=== PATIENT | female | born 1990 | race American Indian/Alaskan Native ===

== ENCOUNTER 2016-03-19 13:36 | Inpatient (IN) | payer OTHER ==
[2016-03-19] MEDS ORDERED: SUBLIMAZE IV PRN (14:05)
[2016-03-19] MEDS ORDERED: MINERAL OIL PO PRN (14:05)
[2016-03-19] MEDS ORDERED: BRETHINE IVP PRN (14:05)
[2016-03-19] MEDS ORDERED: ePHEDrine SULFATE IV PRN ×2 (14:05→18:42)
[2016-03-19] MEDS ORDERED: POLYCILLIN/NS 2 GM/100 ML 100 ML IV ONE (14:05)
[2016-03-19] MEDS ORDERED: STADOL IV PRN (14:05)
[2016-03-19] MEDS ORDERED: BRETHINE SUB-Q PRN (14:05)
[2016-03-19] MEDS ORDERED: PITOCin/NS 20 UNIT/1000ML DRIP 1,000 ML IV SCH (15:00)
[2016-03-19] MEDS ORDERED: PITOCin/NS 30 UNIT/500ML 500 ML IV SCH ×2 (15:00)
[2016-03-19 15:01] LABS: Hematocrit 32.6 % (30.3-42.9); Hemoglobin 10.7 gm/dl (10.1-14.3); Mean Corpuscular HGB Conc 33 % (30-34); Mean Corpuscular Volume 75 fl (79-97); Red Blood Count 4.38 M/mm3 (3.65-5.03); White Blood Count 8.5 K/mm3 (4.5-11.0)
[2016-03-19 15:09] LABS: Mean Corpuscular Hemoglobin 24 pg (28-32); Platelet Count 179 K/mm3 (140-440)
[2016-03-19] MEDS: LACTATED RINGERS 1,000 ML IV SCH ×2 (17:18→20:04)
[2016-03-19] MEDS ORDERED: POLYCILLIN/NS 1 GM/50 ML 50 ML IV SCH (18:07)
[2016-03-19] MEDS ORDERED: ePHEDrine SULFATE ONE ×2 (18:24)
[2016-03-19] MEDS ORDERED: NARCAN 2 MG/2 ML IV PRN (18:42)
--- NOTE | 2016-03-19 18:42 | Anesthesia Consultation ---
Anesthesia Consult and Med Hx Date of service: 03/19/16 - Airway ROM Head & Neck: Adequate Mental/Hyoid Distance: Adequate Mallampati Class: Class II Intubation Access Assessment: Probably Good - Pulmonary Exam CTA: Yes - Cardiac Exam Cardiac Exam: RRR - Pre-Operative Health Status ASA Pre-Surgery Classification: ASA2 Proposed Anesthetic Plan: Epidural - Pulmonary Hx Asthma: No COPD: No Hx Pneumonia: No - Cardiovascular System Hx Hypertension: No - Central Nervous System Hx Seizures: No Hx Psychiatric Problems: No - Endocrine Hx Renal Disease: No Hx End Stage Renal Disease: No Hx Hypothyroidism: No Hx Hyperthyroidism: No - Hematic Hx Anemia: No Hx Sickle Cell Disease: No - Other Systems Hx Alcohol Use: No
[2016-03-19] MEDS ORDERED: fentaNYL-BUPIV 2 MCG/ML-0.125% 100 ML EPIDURAL SCH (19:00)
--- NOTE | 2016-03-19 21:45 | History and Physical Report ---
History of Present Illness Date of examination: 03/19/16 Date of admission: 03/19/16 13:36 Chief complaint: This is a 25 yo at 35+6 weeks came into L and D c/o leaking clear fluid at 1140 am and noted to be 3/70/-3 and liliana. OB problems consist of sickle cell trait. She has gained over 30 pounds in this . Labs include : B+ antibody neg H/H 12.8/38--- 10.3/31.5 Normal pap Rubella IMM RPR NR Hep neg HIV neg PLT 365 HSV2 neg chlam neg jaclyn neg quad neg US VENUS 04/17/16 Glucose 110 HIV neg Previous 5 pounds and 9 oz vag GBS+ Past History Past Medical History: no pertinent history Past Surgical History: no surgical history Family/Genetic History: other (cancer breast) Social history: , smoking (former marijuana ), alcohol abuse (former) - Obstetrical History Expected Date of Delivery: 04/17/16 Actual Gestation: 35 Week(s) 6 Day(s) : 2 Para: 1 Hx # Term Pregnancies: 1 Number of Pregnancies: 0 Spontaneous Abortions: 0 Induced : 0 Number of Living Children: 1 Medications and Allergies Allergies Allergy/AdvReac Type Severity Reaction Status Date / Time No Known Allergies Allergy Verified 03/19/16 13:59 Home Medications Medication Instructions Recorded Confirmed Last Taken Type Loratadine [Claritin] 10 mg PO DAILY #30 tablet 02/24/14 Unknown Rx Permethrin 5% [Acticin 5% CREAM] 1 applicatio TP ONCE #2 tube 02/24/14 Unknown Rx hydrOXYzine HCL [Atarax] 25 mg PO Q6HR PRN #20 tablet 02/24/14 Unknown Rx predniSONE [Deltasone] 50 mg PO QDAY #5 tab 02/24/14 Unknown Rx Active Meds: Active Medications Butorphanol Tartrate (Stadol) 2 mg IV Q2H PRN PRN Reason: Pain , Severe (7-10) Ephedrine Sulfate (Ephedrine Sulfate) 10 mg IV Q2M PRN PRN Reason: Hypotension Stop: 03/20/16 18:41 Fentanyl (Sublimaze) 100 mcg IV Q2H PRN PRN Reason: Labor Pain Last Admin: 03/19/16 17:53 Dose: 100 mcg Ampicillin Sodium (Polycillin/Ns 1 Gm/50 Ml) 50 mls @ 100 mls/hr IV Q4HR SONALI PRN Reason: Protocol Last Admin: 03/19/16 21:19 Dose: 100 mls/hr Lactated Ringer's (Lactated Ringers) 1,000 mls @ 125 mls/hr IV DIRECT SONALI Last Admin: 03/19/16 20:04 Dose: 125 mls/hr Oxytocin/Sodium Chloride (Pitocin/Ns 20 Unit/1000ml Drip) 1,000 mls @ 125 mls/ hr IV DIRECT SONALI Oxytocin/Sodium Chloride (Pitocin/Ns 30 Unit/500ml) 500 mls @ 4 mls/hr IV TITR SONALI PRN Reason: Protocol Oxytocin/Sodium Chloride (Pitocin/Ns 30 Unit/500ml) 500 mls @ 1 mls/hr IV TITR SONALI; 1 MILLIUNITS/MIN PRN Reason: Protocol Fentanyl/Bupivacaine/Sodium Chlor (Fentanyl-Bupiv 2 Mcg/Ml-0.125%) 100 mls @ 12 mls/hr EPIDURAL TITR SONALI PRN Reason: Protocol Last Admin: 03/19/16 19:45 Dose: 12 mls/hr Mineral Oil (Mineral Oil) 30 ml PO QHS PRN PRN Reason: Constipation Review of Systems All systems: negative Breasts: deferred Integumentary: deferred - Vital Signs Vital signs: Vital Signs Pulse Pulse Ox 80 100 03/19/16 13:59 03/19/16 13:59 Temp Pulse Resp BP Pulse Ox 98.4 F 60 18 131/60 100 03/19/16 19:41 03/19/16 21:32 03/19/16 19:45 03/19/16 21:09 03/19/16 21:32 - Physical Exam Breasts: Positive: normal Cardiovascular: Regular rate, Normal S1, Normal S2, No murmurs Lungs: Positive: Clear to auscultation, Normal air movement Abdomen: Positive: normal appearance, soft, normal bowel sounds. Negative: distention, tenderness, guarding Genitourinary (Female): Positive: normal external genitalia, normal perenium Vulva: both: normal Vagina: Positive: normal moisture Cervix: Negative: lesion Uterus: Positive: normal size, normal contour Anus/Rectum: Positive: normal perianal skin, heme negative Extremities: Positive: normal Deep Tendon Reflex Grade: Normal +2 - Obstetrical FHR: auscultation normal Uterine Contraction Monitor Mode: External Cervical Dilatation: 8 Cervical Effacement Percentage: 80 station: -1 Uterine Contraction Pattern: Regular Results Result Diagrams: 03/19/16 14:29 Abnormal lab results 03/19/16 Range/Units 14:29 MCV 75 L (79-97) fl MCH 24 L (28-32) pg RDW 17.0 H (13.2-15.2) % All other labs normal. Assessment and Plan A/P HD#1 SROM in active labor at 35+6 weeks GBS+ ( ampicilin given) s/p epidural expect vaginal delivery
--- NOTE | 2016-03-19 23:56 | Procedure Note ---
OB Delivery Note - Delivery Date of Delivery: 03/19/16 Surgeon: BRIAN DIAZ Estimated blood loss: 300cc - Vaginal Delivery presentation: vertex Delivery position: OA Intrapartum events: labor-<37 weeks, PROM->1hr before delivery Delivery induction: none Delivery monitor: external FHT, external uterine Route of delivery: Delivery placenta: spontaneous Delivery cord: 3 umbilical vessels Episiotomy: none Delivery laceration: 1st degree Delivery repair: vicryl Anesthesia: epidural - Infant A at 1 minute: 8 at 5 minutes: 9 Infant Gender: Male (Patient was noted to be complete and pushing and delviered a viable male infanat apgars 8 and 9 at 2337 and delivered intact placenta sponataneously at 2343 with 3 veseel cord. She sustained a 1st degree lac rpeiared with 2-0 vicryl baby weight 6 pounds and 14 oz. excellent hemostatis noted. tolerated procedure well.)
[2016-03-20] MEDS ORDERED: DULCOLAX PR PRN (05:54)
[2016-03-20] MEDS ORDERED: MILK OF MAGNESIA PO PRN (05:54)
[2016-03-20] MEDS ORDERED: BENADRYL PO PRN (05:54)
[2016-03-20] MEDS ORDERED: PERCOCET 5/325 PO PRN (05:54)
[2016-03-20] MEDS ORDERED: TUCKS PAD TP PRN (05:54)
[2016-03-20] MEDS ORDERED: LANSINOH TP PRN (05:54)
[2016-03-20] MEDS ORDERED: DERMOPLAST TP PRN (05:54)
[2016-03-20] MEDS ORDERED: ZOFRAN IV PRN (05:54)
[2016-03-20] MEDS ORDERED: PHENERGAN PR PRN (05:54)
[2016-03-20] MEDS ORDERED: NORCO 5/325 PO PRN (05:54)
[2016-03-20] MEDS ORDERED: PHENERGAN PO PRN (05:54)
[2016-03-20] MEDS ORDERED: TYLENOL PO PRN (05:54)
[2016-03-20] MEDS ORDERED: SENOKOT S PO SCH (06:00)
[2016-03-20] MEDS ORDERED: SODIUM CHLORIDE FLUSH SYRINGE 10 ML IV NR (06:00)
[2016-03-20] MEDS: MOTRIN PO SCH ×2 (06:25→14:47)
--- NOTE | 2016-03-20 08:52 | Progress Note ---
Assessment and Plan O: VSS AF PP H/H: pending A: Stable PP Day1 P: continue PP orders Subjective - Subjective Date of service: 03/20/16 Patient reports: appetite normal, voiding normally, pain well controlled, flatus , ambulating normally [place]: doing well Objective - Vital Signs Latest vital signs: Vital Signs Temp Pulse Pulse Resp BP BP Pulse Ox 03/20/16 03:10 98.8 F 82 20 142/77 03/20/16 01:15 84 97 03/20/16 01:10 79 100 03/20/16 01:05 88 100 03/20/16 01:03 66 151/75 03/20/16 01:00 61 100 03/20/16 00:55 73 100 03/20/16 00:50 71 100 03/20/16 00:48 64 139/73 03/20/16 00:45 69 100 03/20/16 00:44 98.5 F 79 18 151/75 99 03/20/16 00:40 64 100 03/20/16 00:35 72 100 03/20/16 00:33 72 138/76 03/20/16 00:30 65 100 03/20/16 00:29 98.5 F 72 18 138/76 100 03/20/16 00:25 72 100 03/20/16 00:20 77 100 03/20/16 00:18 71 131/69 03/20/16 00:15 70 100 03/20/16 00:14 98.5 F 70 18 129/63 100 03/20/16 00:10 98 H 100 03/20/16 00:03 77 129/63 03/20/16 00:00 111 H 100 03/19/16 23:55 93 H 143/78 87 03/19/16 23:53 98 H 97 03/19/16 23:48 101 H 98 03/19/16 23:44 98.0 F 112 H 18 143/78 99 03/19/16 23:43 119 H 98 03/19/16 23:38 138 H 100 03/19/16 23:33 147 H 99 03/19/16 23:28 117 H 99 03/19/16 23:23 118 H 99 03/19/16 23:18 87 100 03/19/16 23:12 92 H 100 03/19/16 23:09 85 119/61 03/19/16 23:07 70 100 03/19/16 23:02 91 H 100 03/19/16 22:57 68 100 03/19/16 22:52 67 100 03/19/16 22:47 66 100 03/19/16 22:42 70 100 03/19/16 22:38 67 124/61 03/19/16 22:37 63 100 03/19/16 22:32 63 100 03/19/16 22:27 64 100 03/19/16 22:22 58 L 100 03/19/16 22:17 63 100 03/19/16 22:12 59 L 100 03/19/16 22:08 59 L 136/65 03/19/16 22:07 62 100 03/19/16 22:02 59 L 100 03/19/16 21:57 63 100 03/19/16 21:52 61 100 03/19/16 21:47 61 100 03/19/16 21:42 73 100 03/19/16 21:39 60 126/60 03/19/16 21:37 64 100 03/19/16 21:32 60 100 03/19/16 21:27 56 L 100 03/19/16 21:22 69 100 03/19/16 21:17 67 100 03/19/16 21:12 57 L 100 03/19/16 21:09 60 131/60 03/19/16 21:07 60 100 03/19/16 21:02 61 100 03/19/16 20:57 61 100 03/19/16 20:52 61 100 03/19/16 20:47 63 100 03/19/16 20:42 60 100 03/19/16 20:38 60 143/65 03/19/16 20:37 64 100 03/19/16 20:32 57 L 100 03/19/16 20:27 64 100 03/19/16 20:22 65 100 03/19/16 20:17 57 L 100 03/19/16 20:12 73 100 03/19/16 20:07 71 100 03/19/16 20:02 71 100 03/19/16 20:00 68 124/60 03/19/16 19:57 69 100 03/19/16 19:52 66 100 03/19/16 19:47 69 100 01/17/17 19:45 18 121/59 17 19:44 68 121/59 17/17 19:42 73 100 1717 19:41 98.4 F 69 18 150/75 100 17 19:37 64 100 1717 19:32 62 100 17 19:31 61 150/75 1717 19:30 69 142/75 17 19:27 92 H 100 1717 19:26 81 124/77 17 19:22 68 100 17 19:17 80 100 17 19:13 86 114/77 17 19:12 97 H 100 03/19/16 19:11 83 108/64 03/19/16 19:09 78 116/61 03/19/16 19:07 85 116/64 100 03/19/16 19:05 77 116/64 17 19:03 83 116/61 17 19:02 78 100 03/19/16 19:01 82 124/67 17 18:59 88 124/65 17 18:57 80 124/68 17 18:55 88 123/70 17 18:53 76 127/67 99 17 18:50 81 134/66 17 18:48 95 H 134/65 98 17 18:46 97 H 127/73 1717 18:43 90 99 1717 18:38 92 H 100 17 18:33 86 99 1717 18:28 89 135/77 98 1717 18:23 97 H 98 1717 18:18 100 H 98 1717 18:17 94 H 94 1717 18:13 103 H 97 1717 18:08 87 97 1717 18:06 85 94 1717 18:03 96 H 97 1717 17:58 92 H 98 1717 17:56 96 H 144/76 94 1717 17:53 78 18 95 1717 17:48 81 98 1717 17:43 87 98 17 17:41 87 94 17/17 17:38 82 100 17/17 17:33 85 100 1717 17:28 89 97 1717 17:24 85 94 17/17 17:23 87 99 1717 17:18 89 98 1717 17:13 92 H 97 1717 17:08 87 98 1717 17:03 87 100 1717 16:58 76 99 1717 16:53 79 97 17/17 16:48 93 H 99 1717 16:43 81 98 17/17 16:38 76 99 1717 16:33 80 98 1717 16:28 84 98 1717 16:23 77 97 1717 16:18 87 98 17 16:15 86 130/84 17 16:13 82 99 17 16:08 89 98 17 16:03 82 99 17 15:58 78 98 17 15:53 94 H 98 17 15:48 86 99 17 15:39 87 98 17 15:34 90 98 17 15:29 85 98 17 15:25 97.7 F 14 03/19/16 15:24 84 97 17 15:19 78 97 17 15:14 82 99 17 15:09 84 98 03/19/16 15:04 73 97 17 14:59 83 97 17 14:54 90 98 17 14:49 78 98 17 14:44 81 98 17 14:39 74 98 17 14:34 83 98 03/19/16 14:29 90 98 03/19/16 14:24 77 99 17 14:19 77 98 03/19/16 14:14 78 99 03/19/16 14:09 80 99 03/19/16 14:04 80 99 03/19/16 13:59 80 100 Intake and Output 03/19/16 03/20/1617 22:59 06:59 14:59 Output Total 2400 Balance -2400 Output: Urine 2400 Void 2400 Other: Total, Output Amount 1800 # Voids Void 1 Weight 87.997 kg Estimated Blood Loss 300 - Exam Breasts: Present: deferred Abdomen: Present: normal appearance, soft, distention, normal bowel sounds. Absent: tenderness Vulva: both: normal Uterus: Present: normal, firm, fundal height at umbilicus. Absent: bogginess, tenderness Extremities: Present: normal. Absent: edema - Labs Labs: Abnormal lab results 03/19/16 Range/Units 14:29 MCV 75 L (79-97) fl MCH 24 L (28-32) pg RDW 17.0 H (13.2-15.2) %
[2016-03-20] MEDS ORDERED: PRENATAL VITAMIN PO SCH (10:00)
--- NOTE | 2016-03-20 10:12 | Progress Note ---
Subjective Date of service: 03/20/16 Interval history: 1st day after normal vaginal delivery. Patient is in the bed, relatively comfortable. Pain is mostly controlled with pain meds. Epidural catheter has been removed earlier. Ambulated normally. No residual neurological deficit. No anesthesia complications Objective - Constitutional Vitals: Vital Signs - 12hr 03/19/16 03/19/16 03/19/16 22:12 22:17 22:22 Temperature Pulse Rate 59 L 63 58 L Pulse Rate [ From Monitor] Pulse Rate [ Right From Monitor] Respiratory Rate Blood Pressure Blood Pressure [Left Arm] Blood Pressure [Right Arm] O2 Sat by Pulse 100 100 100 Oximetry 03/19/16 03/19/16 03/19/16 22:27 22:32 22:37 Temperature Pulse Rate 64 63 63 Pulse Rate [ From Monitor] Pulse Rate [ Right From Monitor] Respiratory Rate Blood Pressure Blood Pressure [Left Arm] Blood Pressure [Right Arm] O2 Sat by Pulse 100 100 100 Oximetry 03/19/16 03/19/16 03/19/16 22:38 22:42 22:47 Temperature Pulse Rate 67 70 66 Pulse Rate [ From Monitor] Pulse Rate [ Right From Monitor] Respiratory Rate Blood Pressure 124/61 Blood Pressure [Left Arm] Blood Pressure [Right Arm] O2 Sat by Pulse 100 100 Oximetry 03/19/16 03/19/16 03/19/16 22:52 22:57 23:02 Temperature Pulse Rate 67 68 91 H Pulse Rate [ From Monitor] Pulse Rate [ Right From Monitor] Respiratory Rate Blood Pressure Blood Pressure [Left Arm] Blood Pressure [Right Arm] O2 Sat by Pulse 100 100 100 Oximetry 03/19/16 03/19/16 03/19/16 23:07 23:09 23:12 Temperature Pulse Rate 70 85 92 H Pulse Rate [ From Monitor] Pulse Rate [ Right From Monitor] Respiratory Rate Blood Pressure 119/61 Blood Pressure [Left Arm] Blood Pressure [Right Arm] O2 Sat by Pulse 100 100 Oximetry 03/19/16 03/19/16 03/19/16 23:18 23:23 23:28 Temperature Pulse Rate 87 118 H 117 H Pulse Rate [ From Monitor] Pulse Rate [ Right From Monitor] Respiratory Rate Blood Pressure Blood Pressure [Left Arm] Blood Pressure [Right Arm] O2 Sat by Pulse 100 99 99 Oximetry 03/19/16 03/19/16 03/19/16 23:33 23:38 23:43 Temperature Pulse Rate 147 H 138 H 119 H Pulse Rate [ From Monitor] Pulse Rate [ Right From Monitor] Respiratory Rate Blood Pressure Blood Pressure [Left Arm] Blood Pressure [Right Arm] O2 Sat by Pulse 99 100 98 Oximetry 03/19/16 03/19/16 03/19/16 23:44 23:48 23:53 Temperature 98.0 F Pulse Rate 101 H 98 H Pulse Rate [ From Monitor] Pulse Rate [ 112 H Right From Monitor] Respiratory 18 Rate Blood Pressure Blood Pressure [Left Arm] Blood Pressure 143/78 [Right Arm] O2 Sat by Pulse 99 98 97 Oximetry 03/19/16 03/20/16 03/20/16 23:55 00:00 00:03 Temperature Pulse Rate 93 H 111 H 77 Pulse Rate [ From Monitor] Pulse Rate [ Right From Monitor] Respiratory Rate Blood Pressure 143/78 129/63 Blood Pressure [Left Arm] Blood Pressure [Right Arm] O2 Sat by Pulse 87 100 Oximetry 03/20/16 03/20/16 03/20/16 00:10 00:14 00:15 Temperature 98.5 F Pulse Rate 98 H 70 Pulse Rate [ From Monitor] Pulse Rate [ 70 Right From Monitor] Respiratory 18 Rate Blood Pressure Blood Pressure [Left Arm] Blood Pressure 129/63 [Right Arm] O2 Sat by Pulse 100 100 100 Oximetry 03/20/16 03/20/16 03/20/16 00:18 00:20 00:25 Temperature Pulse Rate 71 77 72 Pulse Rate [ From Monitor] Pulse Rate [ Right From Monitor] Respiratory Rate Blood Pressure 131/69 Blood Pressure [Left Arm] Blood Pressure [Right Arm] O2 Sat by Pulse 100 100 Oximetry 03/20/16 03/20/16 03/20/16 00:29 00:30 00:33 Temperature 98.5 F Pulse Rate 65 72 Pulse Rate [ From Monitor] Pulse Rate [ 72 Right From Monitor] Respiratory 18 Rate Blood Pressure 138/76 Blood Pressure [Left Arm] Blood Pressure 138/76 [Right Arm] O2 Sat by Pulse 100 100 Oximetry 03/20/16 03/20/16 03/20/16 00:35 00:40 00:44 Temperature 98.5 F Pulse Rate 72 64 Pulse Rate [ From Monitor] Pulse Rate [ 79 Right From Monitor] Respiratory 18 Rate Blood Pressure Blood Pressure [Left Arm] Blood Pressure 151/75 [Right Arm] O2 Sat by Pulse 100 100 99 Oximetry 03/20/16 03/20/16 03/20/16 00:45 00:48 00:50 Temperature Pulse Rate 69 64 71 Pulse Rate [ From Monitor] Pulse Rate [ Right From Monitor] Respiratory Rate Blood Pressure 139/73 Blood Pressure [Left Arm] Blood Pressure [Right Arm] O2 Sat by Pulse 100 100 Oximetry 03/20/16 03/20/16 03/20/16 00:55 01:00 01:03 Temperature Pulse Rate 73 61 66 Pulse Rate [ From Monitor] Pulse Rate [ Right From Monitor] Respiratory Rate Blood Pressure 151/75 Blood Pressure [Left Arm] Blood Pressure [Right Arm] O2 Sat by Pulse 100 100 Oximetry 03/20/16 03/20/16 03/20/16 01:05 01:10 01:15 Temperature Pulse Rate 88 79 84 Pulse Rate [ From Monitor] Pulse Rate [ Right From Monitor] Respiratory Rate Blood Pressure Blood Pressure [Left Arm] Blood Pressure [Right Arm] O2 Sat by Pulse 100 100 97 Oximetry 03/20/16 03/20/16 03:10 07:53 Temperature 98.8 F 98.5 F Pulse Rate Pulse Rate [ 93 H From Monitor] Pulse Rate [ 82 Right From Monitor] Respiratory 20 16 Rate Blood Pressure Blood Pressure 104/65 [Left Arm] Blood Pressure 142/77 [Right Arm] O2 Sat by Pulse Oximetry - Labs CBC & Chem 7: 03/19/16 14:29 Labs: Abnormal lab results 03/19/16 Range/Units 14:29 MCV 75 L (79-97) fl MCH 24 L (28-32) pg RDW 17.0 H (13.2-15.2) %
[2016-03-20 18:35] LABS: Hematocrit 30.2 % (30.3-42.9); Hemoglobin 9.7 gm/dl (10.1-14.3)
[2016-03-21] MEDS ORDERED: BOOSTRIX IM ONE (06:00)
[2016-03-21] MEDS: MOTRIN PO SCH ×2 (06:04)
--- NOTE | 2016-03-21 08:58 | Progress Note ---
Assessment and Plan O: VSS AF A: Stable PP Day1 Anemia P:D/C home Subjective - Subjective Date of service: 03/21/16 Patient reports: appetite normal, voiding normally, pain well controlled, flatus , ambulating normally [place]: doing well, nursing well Objective - Vital Signs Latest vital signs: Vital Signs Temp Pulse Resp BP 03/20/16 23:55 98.0 F 89 20 120/64 03/20/16 15:38 98.1 F 98 H 20 115/52 Intake and Output 03/20/16 03/21/16 03/21/16 22:59 06:59 14:59 Intake Total 720 360 Balance 720 360 Intake: Oral 720 360 Other: Total, Intake Amount 240 120 # Voids Void 1 1 - Exam Breasts: Present: deferred Lungs: Present: Normal air movement Abdomen: Present: normal appearance, soft. Absent: distention, tenderness Vulva: both: normal Uterus: Present: normal, firm, fundal height below umbilicus. Absent: bogginess , tenderness Extremities: Present: normal - Labs Labs: Abnormal lab results 03/20/16 Range/Units 18:05 Hgb 9.7 L (10.1-14.3) gm/dl Hct 30.2 L (30.3-42.9) %
--- NOTE | 2016-03-21 08:59 | Discharge Summary ---
Providers - Providers Date of Admission: 03/19/16 13:36 Date of discharge: 03/21/16 Attending physician: BRIAN DIAZ MD Primary care physician: EDER LIZAMA Hospitalization Reason for admission: active labor, IUP at term Delivery: Episiotomy: none Laceration: 1st degree Other procedures: none complications: none Discharge diagnosis: IUP at term delivered baby: male Condition at discharge: Good Disposition: DISCHARGED TO HOME OR SELFCARE Plan - Discharge Medications Prescriptions: Docusate Sodium [Colace] 100 mg PO QDAY PRN #30 capsule PRN Reason: Constipation Ferrous Sulfate [Feosol 325 MG tab] 325 mg PO BID #60 tablet Ibuprofen [Motrin 600 MG tab] 600 mg PO Q6H PRN #30 tablet PRN Reason: Pain - Provider Discharge Summary Activity: routine, no sex for 6 weeks, no heavy lifting 4 weeks, no strenuous exercise Diet: routine Instructions: routine Additional instructions: [] Smoking cessation referral if applicable(refer to patient education folder for contact #) [] Refer to [facility]'s [facility] Booklet Call your doctor immediately for: * Fever > 100.5 * Heavy vaginal bleeding ( >1 pad per hour) * Severe persistent headache * Shortness of breath * Reddened, hot, painful area to leg or breast * Drainage or odor from incision. * Keep incision clean and dry at all times and follow doctor's instructions regarding bathing/showering - Follow up plan Follow up: EDER LIZAMA MD [Primary Care Provider] - WILDER ZHAO MD [Staff Physician] - (RTO 4 weeks for . Call office to schedule infant circumcision)
[2016-03-21 09:23] VITALS: BP 119/71
[2016-03-21] MEDS ORDERED: FLUARIX QUAD 2016-2017(36 MOS+) IM ONE (11:30)
== END 2016-03-21 11:45 | disposition home or self-care (01) | DRG 775 ==
LOC: LD 13:36 → OB 03-20 03:15
PROVIDERS: ADMIT Obstetrics & Gynecology; ATTEND Obstetrics & Gynecology
PROC: 10E0XZZ Delivery of Products of Conception, External Approach (ICD-10-PCS; principal; 2016-03-19)
PROC: 0HQ9XZZ Repair Perineum Skin, External Approach (ICD-10-PCS; 2016-03-19)
PROC: 3E0S3CZ (ICD-10-PCS; 2016-03-19)
PROC: 00HU33Z Insertion of Infusion Device into Spinal Canal, Percutaneous Approach (ICD-10-PCS; 2016-03-19)
DX: O99.824 Streptococcus B carrier state complicating childbirth (principal); D57.3 Sickle-cell trait; O60.14X0 Preterm labor third trimester with preterm delivery third trimester, not applicable or unspecified; O42.013 Preterm premature rupture of membranes, onset of labor within 24 hours of rupture, third trimester; Z3A.35 35 weeks gestation of pregnancy; Z37.0 Single live birth; O99.02 Anemia complicating childbirth; O70.0 First degree perineal laceration during delivery
CPT/HCPCS: 36415; 85014; 85018; 85027; 86850; 86900; 86901; 90686; 90715; 99211; G0463; J0290; J2590; J3010; J7120

== ENCOUNTER 2018-07-03 17:41 | Inpatient (IN) | payer OTHER ==
[2018-07-03] MEDS ORDERED: LACTATED RINGERS 0 ML ONE (18:24)
[2018-07-03] MEDS ORDERED: LACTATED RINGERS 1,000 ML IV SCH ×2 (19:00→20:00)
[2018-07-03 19:02] LABS: Basophils % (Auto) 0.2 % (0.0-1.8); Hematocrit 35.1 % (30.3-42.9); Hemoglobin 11.2 gm/dl (10.1-14.3); Lymphocytes # (Auto) 0.7 K/mm3 (1.2-5.4); Lymphocytes % (Auto) 9.6 % (13.4-35.0); Mean Corpuscular HGB Conc 32 % (30-34); Mean Corpuscular Volume 72 fl (79-97); Monocytes # (Auto) 0.3 K/mm3 (0.0-0.8); Monocytes % (Auto) 4.2 % (0.0-7.3); Platelet Count 194 K/mm3 (140-440); Red Blood Count 4.88 M/mm3 (3.65-5.03); Red Cell Distribution Width 22.9 % (13.2-15.2)
[2018-07-03] MEDS ORDERED: BICITRA PO ONE (19:06)
[2018-07-03] MEDS ORDERED: PEPCID IV ONE (19:06)
[2018-07-03] MEDS ORDERED: REGLAN IV ONE (19:06)
--- NOTE | 2018-07-03 19:27 | Anesthesia Consultation ---
Anesthesia Consult and Med Hx Date of service: 07/03/18 - Airway Anesthetic Teeth Evaluation: Good ROM Head & Neck: Adequate Mental/Hyoid Distance: Adequate Mallampati Class: Class II Intubation Access Assessment: Probably Good - Pre-Operative Health Status ASA Pre-Surgery Classification: ASA2 Proposed Anesthetic Plan: Epidural, Spinal - Pulmonary Hx Smoking: Yes (former) Hx Asthma: No COPD: No Hx Pneumonia: No - Cardiovascular System Hx Hypertension: No - Central Nervous System Hx Seizures: No Hx Psychiatric Problems: No - Endocrine Hx Renal Disease: No Hx End Stage Renal Disease: No Hx Hypothyroidism: No Hx Hyperthyroidism: No - Hematic Hx Anemia: Yes (This - has been getting iron infusions) Hx Sickle Cell Disease: No (pt has sickle cell trait; spouse is negative for sickle cell) - Other Systems Hx Alcohol Use: No
--- NOTE | 2018-07-03 19:46 | History and Physical Report ---
History of Present Illness Date of examination: 07/03/18 Date of admission: 07/03/18 18:42 Chief complaint: contractions History of present illness: 27y/o @ 36+5 weeks presents in active labor with regular uterine contractions. She denies leakage of fluid. course is complicated by twin gestation. Twin A has IUGR. The patient suffers from anemia. She initiated her care in the first trimester. The patient desires permanent sterilization Past History Past Medical History: other (sickle cell trait; anemia) Past Surgical History: no surgical history Social history: - Obstetrical History Expected Date of Delivery: 07/26/18 Actual Gestation: 36 Week(s) 5 Day(s) : 3 Para: 2 Hx # Term Pregnancies: 2 Number of Pregnancies: 0 Spontaneous Abortions: 0 Induced : 0 Number of Living Children: 2 Medications and Allergies Allergies Allergy/AdvReac Type Severity Reaction Status Date / Time No Known Allergies Allergy Verified 03/19/16 13:59 Home Medications Medication Instructions Recorded Confirmed Last Taken Type Loratadine [Claritin] 10 mg PO DAILY #30 tablet 02/24/14 03/20/16 Unknown Rx Permethrin 5% [Acticin 5% CREAM] 1 applicatio TP ONCE #2 tube 02/24/14 03/20/16 Unknown Rx hydrOXYzine HCL [Atarax] 25 mg PO Q6HR PRN #20 tablet 02/24/14 03/20/16 Unknown Rx predniSONE [Deltasone] 50 mg PO QDAY #5 tab 02/24/14 03/20/16 Unknown Rx Docusate Sodium [Colace] 100 mg PO QDAY PRN #30 capsule 03/21/16 Unknown Rx Ferrous Sulfate [Feosol 325 MG tab] 325 mg PO BID #60 tablet 03/21/16 Unknown Rx Ibuprofen [Motrin 600 MG tab] 600 mg PO Q6H PRN #30 tablet 03/21/16 Unknown Rx Active Meds: Active Medications Lactated Ringer's (Lactated Ringers) 1,000 mls @ 125 mls/hr IV DIRECT SONALI Last Admin: 07/03/18 19:04 Dose: 125 mls/hr Documented by: Cefazolin Sodium (Ancef/Sterile Water 2 Gm/20 Ml) 2 gm in 20 mls @ 80 mls/hr IV PREOP NR; Protocol Stop: 07/04/18 04:00 Lactated Ringer's (Lactated Ringers) 1,000 mls @ 2,250 mls/hr IV PREOP SONALI Stop: 07/04/18 20:27 Oxytocin/Sodium Chloride (Pitocin/Ns 20 Unit/1000ml Drip) 20 units in 1,000 mls @ 0 mls/hr IV TITR SONALI Review of Systems All systems: negative Genitourinary: vaginal bleeding, contractions, no leakage of fluid - Vital Signs Vital signs: Vital Signs Pulse BP 104 H 126/71 07/03/18 17:57 07/03/18 17:57 Temp Pulse Resp BP Pulse Ox 98.2 F 93 H 20 126/71 98 07/03/18 18:31 07/03/18 18:31 07/03/18 18:31 07/03/18 18:31 07/03/18 18:31 - Physical Exam Breasts: Positive: deferred Cardiovascular: Regular rate Lungs: Positive: Clear to auscultation Results Result Diagrams: 07/03/18 18:30 Abnormal lab results 07/03/18 Range/Units 18:30 MCV 72 L (79-97) fl MCH 23 L (28-32) pg RDW 22.9 H (13.2-15.2) % Lymph % (Auto) 9.6 L (13.4-35.0) % Lymph # 0.7 L (1.2-5.4) K/mm3 Seg Neutrophils % 86.0 H (40.0-70.0) % All other labs normal. Assessment and Plan - Patient Problems (1) Twin gestation in third trimester Current Visit: Yes Status: Acute Plan to address problem: The patient's plan of treatment was to proceed with a primary delivery and bilateral tubal ligation (2) Intrauterine growth restriction (IUGR) affecting care of mother Current Visit: Yes Status: Acute (3) Anemia Current Visit: Yes Status: Acute
--- NOTE | 2018-07-03 19:47 | Ultrasound Report ---
PROCEDURE: US OB LIMITED HISTORY: twins position FINDINGS: Real-time ultrasound of the pelvis was performed for lie. Twin A lies in cephalic lie, with the cervical canal. cardiac activity is present at 1 76 bpm. Twin B lies in transverse lie with head to the maternal left. cardiac activity is present at 17 3 beats per minute. IMPRESSION: Live twin gestation. This document is electronically signed by Jeromy Serrato MD., Jul 03 2018 07:45:46 PM ET
[2018-07-03] MEDS ORDERED: ZOFRAN IV PRN ×2 (19:48→19:53)
[2018-07-03] MEDS ORDERED: TUCKS PAD TP PRN (19:48)
[2018-07-03] MEDS ORDERED: LANSINOH TP PRN (19:48)
[2018-07-03] MEDS ORDERED: MILK OF MAGNESIA PO PRN (19:48)
[2018-07-03] MEDS ORDERED: TYLENOL PO PRN (19:48)
[2018-07-03] MEDS ORDERED: NARCAN 0.4 MG/1 ML IV PRN ×2 (19:48→19:53)
[2018-07-03] MEDS ORDERED: PHENERGAN PO PRN (19:53)
[2018-07-03] MEDS ORDERED: PHENERGAN PR PRN (19:53)
[2018-07-03] MEDS ORDERED: BENADRYL IV PRN (19:53)
[2018-07-03] MEDS ORDERED: DILAUDID IV PRN (19:53)
--- NOTE | 2018-07-03 19:53 | Anesthesia Day of Surgery ---
Anesthesia Day of Surgery - Day of Surgery Patient Examined: Yes Patient H&P Reviewed: Yes Patient is NPO: Yes
[2018-07-03] MEDS ORDERED: TORADOL IV PRN (19:55)
[2018-07-03] MEDS ORDERED: PITOCin/NS 20 UNIT/1000ML DRIP 20 UNITS/1,000 ML BAG IV SCH ×2 (20:00)
[2018-07-03] MEDS ORDERED: ANCEF/STERILE WATER 2 GM/20 ML 2 GM/20 ML SYRINGE IV NR (20:00)
[2018-07-03] MEDS ORDERED: SODIUM CHLORIDE FLUSH SYRINGE 10 ML IV NR ×2 (20:00)
[2018-07-03] MEDS ORDERED: SUBLIMAZE ONE (20:17)
[2018-07-03] MEDS ORDERED: SENSORCAINE/DEXTR 0.75-8.25% INFILTRATI ONE (20:19)
[2018-07-03] MEDS ORDERED: ANCEF/STERILE WATER 2 GM/20 ML IV ONE (20:37)
[2018-07-03] MEDS ORDERED: NEO SYNEPHRINE/NS Syringe(OR USE) IV ONE (20:54)
[2018-07-03] MEDS ORDERED: LACTATED RINGERS 1,000 ML ONE (20:54)
--- NOTE | 2018-07-03 21:37 | Procedure Note ---
OB Delivery Note - Delivery Date of Delivery: 07/03/18 Surgeon: ROSA RASMUSSEN Estimated blood loss: 1000cc - Section Preop diagnosis: desires sterilization Postop diagnosis: same section procedure: section, primary low transverse, bilateral tubal ligation Disposition: PACU Complications: none - A at 1 minute: 8 at 5 minutes: 9 Gender: Female (4 lbs. 11 oz.) B at 1 minute: 8 at 5 minutes: 7 Infant Gender: Female (5 lbs. 2 oz.)
--- NOTE | 2018-07-03 21:38 | Operative Report ---
Operative Report Operative Report: Date of surgery: 07/03/2018 Preoperative diagnosis: at 36+5 weeks; twin gestation; intrauterine growth restriction of twin A; active labor Postoperative diagnosis: Same as above Procedure: Primary low-transverse delivery and bilateral tubal ligation via Dunmore method Surgeon: Meri Ortez M.D. Anesthesia: Regional Estimated blood loss: 1000 mL IV fluids: 1700 mL Urine output: 600 mL Findings: Liveborn infant twin A is a female with Apgars of 8 and 9 weight 4 lbs. 11 oz. Twin B is a female with Apgars of 8, 7 and 9 weight 5 lbs. 2 oz. Indications: 27-year-old at 36+5 weeks with a history of twin gestation that was complicated by intrauterine growth restriction of twin A. The patient presented in active labor with regular uterine contractions and cervical change. Patient elected to undergo a primary delivery and tubal ligation. Procedure: The patient was taken to the operating room and given regional anesthesia without complication. She was prepped and draped in a normal sterile fashion. A Pfannenstiel skin incision was made down to layer the fascia which was nicked in the midline extended laterally with the Bovie cautery. The superior aspect of the rectus fascia was grasped with Mehnaz clamps x2 and the rectus muscles off sharply. This was done in inferior fashion as well. The rectus muscle midline and peritoneum entered bluntly. An Matt retractor was then inserted. A bladder blade was placed. The vesicouterine peritoneum was then entered sharply with Metzenbaum scissors. A bladder flap was created digitally. A low transverse uterine incision was then made and extended digitally. There was clear fluid upon entry into the uterine cavity. The head was delivered through the incision with fundal pressure. The cord was clamped and cut x2 and was passed off to pediatrics. Amniotomy was performed of twin B was in vertex presentation. The was delivered with fundal pressure. The cord was clamped and cut 2 and was bulb suctioned. Twin B was then passed to the pediatric team in attendance. The placenta was then manually extracted. The uterus was then exteriorized and cleared of clots and debris. The uterine incision was then closed in a running locked fashion with 0 Vicryl additional imbricating stitch was applied for 2 layer closure. Attention was then turned to the patient's tubes with the ampullary portion the tube was grasped with a Oriska. A window was created in the mesosalpinx. The distal and proximal area of the ampullary tube were ligated 2 with chromic gut. A 1 cm portion of tube was then excised. This was done on the contralateral side as well. The posterior cul-de-sac was then copiously irrigated. The uterus was replaced back into the abdomen and pelvis were the gutters were then irrigated. The Matt retractor was then removed. The peritoneum was then reapproximated with 3-0 Vicryl incorporating the rectus muscle. The fascia was then closed with 0 Vicryl in a running fashion. The skin was then reapproximated with 3-0 Monocryl on a Aristides needle subcuticular fashion. Steri-Strips to place across the incision and a Crede procedures performed at the end of the surgery. A pressure dressing was applied to the incision. The surgery productive of a liveborn twin A is a female with Apgars of 8 and 9 weight 4 lbs. 11 oz twin B is a female with Apgars of 8, 7 and 9 weight 5 lbs. 2 oz. The patient was taken to the recovery room in stable condition. All sponge laps and needle counts correct x2. The placenta and ampullary portions of the tubes were sent to pathology.
--- NOTE | 2018-07-03 22:04 | Post Anesthesia Evaluation ---
- Post Anesthesia Evaluation Patient Participated: Yes Airway Patent: Yes Stable Respiratory Function: Yes Nausea/Vomiting: No Temp > 96.8F: Yes Pain Manageable: Yes Adequeate Hydration: Yes Anesthesia Complications: No Block Receding Appropriately: Yes Patient on Ventilator: No
[2018-07-03] MEDS: DILAUDID IV PRN ×2 (22:59→23:07)
[2018-07-04] MEDS: D5LR 1,000 ML IV SCH ×2 (00:12→06:40)
[2018-07-04] MEDS: TORADOL IV PRN ×2 (00:22→05:28)
[2018-07-04] MEDS ORDERED: BOOSTRIX IM ONE (06:00)
[2018-07-04 08:49] LABS: Hematocrit 25.5 % (30.3-42.9)
[2018-07-04] MEDS: PERCOCET 5/325 PO PRN ×4 (10:01→22:59)
[2018-07-04] MEDS: FEOSOL PO SCH (10:19)
[2018-07-05] MEDS: IBUPROFEN PO PRN ×3 (05:31→17:48)
[2018-07-05] MEDS: FEOSOL PO SCH (09:09)
[2018-07-05] MEDS: PERCOCET 5/325 PO PRN (09:09)
--- NOTE | 2018-07-05 14:58 | Progress Note ---
Assessment and Plan POD 2 s/p ltcs. Doing well. Pt has passed gas and is now tolerating regular diet. Continue routine care. Subjective - Subjective Date of service: 07/05/18 Patient reports: appetite normal, voiding normally, pain well controlled, flatus, ambulating normally Dutton: doing well Objective - Vital Signs Latest vital signs: Vital Signs Temp Pulse Resp BP Pulse Ox 07/05/18 09:09 18 07/05/18 07:19 98.4 F 87 20 113/65 99 07/05/18 00:16 98.0 F 97 H 20 106/69 97 07/04/18 15:48 98.6 F 82 20 114/63 97 Intake and Output 07/04/18 07/05/18 07/05/18 22:59 06:59 14:59 Intake Total 720 480 480 Output Total 850 Balance -130 480 480 Intake: Oral 720 480 240 Intake, Free Water 240 Output: Urine 850 Void 850 Other: Total, Intake Amount 240 240 240 Total, Output Amount 850 # Voids Void 1 1 - Exam Cardiovascular: Present: Regular rate, Normal S1, Normal S2 Lungs: Present: Clear to auscultation, Normal air movement Abdomen: Present: normal appearance, soft Uterus: Present: normal, firm Extremities: Present: normal Incision: Present: normal, dry, intact
[2018-07-06] MEDS: PERCOCET 5/325 PO PRN (00:07)
--- NOTE | 2018-07-06 08:37 | Progress Note ---
Assessment and Plan A: POD#3 s/p primary section with tubal ligation at 36 wks; Asymptomatic anemia P: Routine care. Bowel regimen. Encourage ambulation. Anticipate discharge this afternoon with follow up in 2 wks for incision check. Subjective - Subjective Date of service: 07/06/18 Principal diagnosis: s/p with tubal, twin IUP at 36 wks Interval history: No overt events. Patient reports flatus but no bowel movement. Patient reports: appetite normal, voiding normally, pain well controlled, flatus, ambulating normally, no bowel movement, no nauseated : doing well Objective - Vital Signs Latest vital signs: Vital Signs Temp Pulse Resp BP Pulse Ox 07/06/18 01:24 98.6 F 86 18 106/49 97 07/05/18 17:09 98.2 F 102 H 18 102/63 99 07/05/18 09:09 18 Intake and Output 07/05/18 07/06/18 07/06/18 22:59 06:59 14:59 Intake Total 1440 Balance 1440 Intake: Oral 960 Intake, Free Water 480 Other: Total, Intake Amount 960 Voiding Method Toilet # Voids Void 4 - Exam Breasts: Present: deferred Cardiovascular: Present: Regular rate Lungs: Present: Clear to auscultation Abdomen: Present: soft, distention (moderate ) Uterus: Present: fundal height below umbilicus Extremities: Present: normal Incision: Present: dressed
--- NOTE | 2018-07-06 08:40 | Discharge Summary ---
Providers - Providers Date of Admission: 07/03/18 18:42 Date of discharge: 07/06/18 Attending physician: BRIAN DIAZ MD Primary care physician: BRIAN DIAZ MD Hospitalization Reason for admission: active labor Delivery: Procedure: section, bilateral tubal ligation, primary low transverse Procedure details: Please see operative note. Incision: intact Other procedures: none complications: none Discharge diagnosis: delivery baby: twins Hospital course: The patient was admitted in active labor and underwent a primary section with tubal ligation was tolerated well. Her post operative course uncomplicated discharge criteria postoperative day #3. She'll follow up in 2 weeks in the office for an incision check. Condition at discharge: Stable Disposition: - TO HOME OR SELFCARE - Discharge Diagnoses (1) Active labor Status: Acute (2) labor in third trimester with delivery Status: Acute Qualifiers: Fetus number: fetus 2 of multiple gestation Qualified Code(s): O60.14X2 - labor third trimester with delivery third trimester, fetus 2 (3) S/P section Status: Acute (4) Obesity Status: Acute Qualifiers: Obesity type: unspecified obesity type Body mass index: BMI 36.0-36.9 (5) Twin gestation in third trimester Status: Acute Qualifiers: Multiple gestation type: dichorionic and diamniotic Qualified Code(s): O30.043 - Twin , dichorionic/diamniotic, third trimester Plan - Discharge Medications Prescriptions: Docusate Sodium [Colace] 100 mg PO BID PRN #60 capsule PRN Reason: Constipation Ferrous Sulfate [Feosol 325 MG tab] 325 mg PO BID #60 tablet Ibuprofen [Motrin] 800 mg PO Q8HR PRN #30 tablet PRN Reason: Pain, Moderate (4-6) oxyCODONE /ACETAMINOPHEN [Percocet 5/325] 1 tab PO Q4HR PRN #40 tab PRN Reason: Pain , Severe (7-10) - Provider Discharge Summary Activity: routine, no sex for 6 weeks, no heavy lifting 4 weeks, no strenuous exercise Diet: routine Instructions: routine Additional instructions: [] Smoking cessation referral if applicable(refer to patient education folder for contact #) [] Refer to [facility] Booklet Call your doctor immediately for: * Fever > 100.5 * Heavy vaginal bleeding ( >1 pad per hour) * Severe persistent headache * Shortness of breath * Reddened, hot, painful area to leg or breast * Drainage or odor from incision. * Keep incision clean and dry at all times and follow doctor's instructions regarding bathing/showering - Follow up plan Follow up: BRIAN DIAZ MD [Primary Care Provider] - 07/20/18 (Please call to schedule incision check )
[2018-07-06] MEDS: MILK OF MAGNESIA PO SCH ×2 (09:30→16:24)
[2018-07-06] MEDS: FEOSOL PO SCH (09:30)
[2018-07-06] MEDS: IBUPROFEN PO PRN ×2 (09:30→16:19)
[2018-07-06 17:26] VITALS: BP 127/71
== END 2018-07-06 17:06 | disposition home or self-care (01) | DRG 783 ==
LOC: TRG 17:41 → APU 18:42 → OB 23:35
PROVIDERS: ADMIT Obstetrics & Gynecology; ATTEND Obstetrics & Gynecology
PROC: 10D00Z1 Extraction of Products of Conception, Low, Open Approach (ICD-10-PCS; principal; 2018-07-03)
PROC: 0UB70ZZ Excision of Bilateral Fallopian Tubes, Open Approach (ICD-10-PCS; 2018-07-03)
PROC: 3E0234Z Introduction of Serum, Toxoid and Vaccine into Muscle, Percutaneous Approach (ICD-10-PCS; 2018-07-04)
DX: O30.043 Twin pregnancy, dichorionic/diamniotic, third trimester (principal); O60.14X2 Preterm labor third trimester with preterm delivery third trimester, fetus 2; O60.14X1 Preterm labor third trimester with preterm delivery third trimester, fetus 1; O36.5931 Maternal care for other known or suspected poor fetal growth, third trimester, fetus 1; O99.02 Anemia complicating childbirth; O99.214 Obesity complicating childbirth; E66.9 Obesity, unspecified; D57.1 Sickle-cell disease without crisis; Z3A.36 36 weeks gestation of pregnancy; Z37.2 Twins, both liveborn; Z87.891 Personal history of nicotine dependence; Z23 Encounter for immunization
CPT/HCPCS: 36415; 76815; 85014; 85018; 85025; 86592; 86850; 86900; 86901; 88302; 88307; 90471; 90715; G0378; J0690; J1170; J1885; J2370; J2765; J3010; J7120; J7121